=== PATIENT | female | born 1950 | race Two or more races ===

== ENCOUNTER 2025-09-15 18:59 | Inpatient (IN) | payer OTHER ==
[~2025-09-15] VITALS: Ht 152.4 cm; Wt 65.8 kg
--- NOTE | 2025-09-15 20:18 | NUR ---
PACIENTE ALERTA Y ORIENTADA X 3. REFIERE DOLOR ABDOMIAL HACEN 3 ARCOS E INDICA DIVERTICULITIS.
[2025-09-15] MEDS ORDERED: INTESTINEX680 M1 PO (20:25)
[2025-09-15] MEDS ORDERED: METRONIDAZOLE500 MG (20:25)
[2025-09-15] MEDS ORDERED: CIPRO500 MG (20:25)
[2025-09-15] MEDS ORDERED: FARXIGA10 MG PO (20:26)
[2025-09-15] MEDS ORDERED: CARVEDILOL ER40 MG (20:26)
[2025-09-15] MEDS ORDERED: ENTRESTO 24 MG1 EACH PO (20:27)
[2025-09-15] MEDS ORDERED: ALDACTONE25 MG PO (20:27)
[2025-09-15] MEDS ORDERED: MORPHINE SULFATE 4 MG/ML CARTRIDGE IV ONE (22:00)
[2025-09-15] MEDS ORDERED: ONDANSETRON HCL 4 MG in 0.9 % SODIUM CHLORIDE 50 ML IV ONE (22:00)
[2025-09-15] MEDS ORDERED: PIPERACILLIN/TAZOBACTAM SODIUM 3.375 GM in DEXTROSE 5 % IN WATER 100 ML IV ONE (22:00)
[2025-09-15] MEDS ORDERED: FAMOTIDINE/PF 20 MG in 0.9 % SODIUM CHLORIDE 8 ML IV PUSH ONE (22:00)
[2025-09-15] MEDS ORDERED: HYOSCYAMINE SULFATE 0.125 MG TAB.SUBL PO ONE (22:00)
[2025-09-15] MEDS ORDERED: ONDANSETRON 4 MG TAB.RAPDIS PO ONE (23:49)
[2025-09-15] MEDS ORDERED: HYOSCYAMINE SULFATE 0.125 MG TAB.SUBL ONE (23:49)
[2025-09-15] MEDS ORDERED: FAMOTIDINE/PF 20 MG/2 ML VIAL ONE (23:50)
[2025-09-15] MEDS ORDERED: PIPERACILLIN/TAZOBACTAM SODIUM 3.375 GM VIAL IV ONE (23:50)
[2025-09-15] MEDS ORDERED: ONDANSETRON HCL 2 MG/ML VIAL ONE (23:50)
[2025-09-16] MEDS ORDERED: PIPERACILLIN/TAZOBACTAM SODIUM 3.375 GM in DEXTROSE 5 % IN WATER 100 ML IV SCH
[2025-09-16 00:42] LABS: INR 1.05
[2025-09-16 00:43] LABS: BASO % 0.4 % (0.1-1.2); EOS # 0.10 (0.04-0.54); EOS % 1.2 % (0.7-7.0); LYMPH # 1.97 (1.18-3.74); LYMPH % 24.6 % (19.3-53.1); MEAN PLATELET VOLUME 11.00 fl (9.4-12.4); MONO # 0.68 (0.24-0.82); MONO % 8.5 % (4.7-12.5); NEUT # 5.20 (1.56-6.13); NEUT % 64.9 % (34.0-71.1); RED CELL DISTRIBUTION WIDTH 12.9 % (11.6-14.4)
[2025-09-16 00:44] LABS: URINE APPEARANCE Cloudy; URINE BILIRRUBIN Negative (NEGATIVE); URINE BLOOD Negative; URINE COLOR Yellow; URINE LEUKOCYTE Small; URINE NITRATE Negative; URINE PROTEIN Negative (NEGATIVE); URINE UROBILINOGEN 0.2 E.U./dl
[2025-09-16 00:46] LABS: ALT/SGPT 20.0 U/L (12-78); AST/SGOT 17.0 U/L (15-37); BILIRUBIN TOTAL 0.53 mg/dL (0.3-1.2); BUN CREA RATIO 30.0 (7.0-25.0); CREATININE SERUM 0.82 mg/dL (0.55-1.02); GFR 67.6; GLOBULINA 3.7 G/DL (2.4-3.5); GLUCOSE FASTING 87.0 mg/dL (65-100); OSMOLALITY SERUM 281.0 MOSM/KG (275-295)
[2025-09-16 00:48] LABS: URINE EPITHELIAL CELLS 59.9 uL (0.0-38.8); URINE RBC 18.4 uL (0.0-20.8); URINE WBC 160.8 uL (0.0-23.2)
[2025-09-16 00:50] LABS: ERYTHROCYTE SEDIMENTATION RATE 35 mm/hr (0-30)
[2025-09-16 01:06] LABS: URINE CAST 0.42 uL (0.0-1.40); URINE GLUCOSE >=1000 MG/DL (NEGATIVE); URINE KETONE 40 (NEGATIVE); URINE YEAST FEW /hpf
--- NOTE | 2025-09-16 03:51 | NUR ---
PACIENTE EVALUADA POR QUIEN ORDENA TRATAMIENTO MEDICO, SE LE ORIENTA A PACIENTE SOBRE EL MISMO Y REFIERE ENTENDER, SE LE COLECTAN MUESTRAS, SE CANALIZA Y SE ADMINISTRAN MEDICAMENTOS MARIE ORDEN.
[2025-09-16] MEDS ORDERED: PIPERACILLIN/TAZOBACTAM SODIUM 3.375 GM VIAL IV ONE ×2 (05:50→12:11)
[2025-09-16] MEDS ORDERED: CIPROFLOXACIN IN 5 % DEXTROSE 200 ML IV SCH (13:43)
[2025-09-16] MEDS ORDERED: FAMOTIDINE/PF 20 MG in 0.9 % SODIUM CHLORIDE 100 ML IV SCH (13:44)
[2025-09-16] MEDS ORDERED: ONDANSETRON HCL 4 MG in 0.9 % SODIUM CHLORIDE 50 ML IV PRN (13:45)
[2025-09-16] MEDS ORDERED: ACETAMINOPHEN 500 MG GEL..CAP PO SCH (14:00)
[2025-09-16 14:03] VITALS: BP 100/70
[2025-09-16] MEDS ORDERED: METRONIDAZOLE/SODIUM CHLORIDE 500 MG/100 ML PIGGYBACK IV ONE (14:08)
[2025-09-16] MEDS ORDERED: CIPROFLOXACIN IN 5 % DEXTROSE 400 MG/200 ML PIGGYBAG IV ONE (14:08)
[2025-09-16] MEDS ORDERED: FAMOTIDINE/PF 20 MG/2 ML VIAL ONE (14:09)
[2025-09-16 16:32] VITALS: BP 145/72; O2SAT 95
[2025-09-16 17:38] VITALS: BP 117/73; O2SAT 100
[2025-09-17 01:46] VITALS: BP 117/61; O2SAT 96
[2025-09-17 06:18] LABS: BASO % 0.5 % (0.1-1.2); EOS # 0.13 (0.04-0.54); EOS % 2.1 % (0.7-7.0); LYMPH # 1.38 (1.18-3.74); LYMPH % 22.8 % (19.3-53.1); MEAN PLATELET VOLUME 11.10 fl (9.4-12.4); MONO # 0.59 (0.24-0.82); MONO % 9.7 % (4.7-12.5); NEUT # 3.91 (1.56-6.13); NEUT % 64.6 % (34.0-71.1); RED CELL DISTRIBUTION WIDTH 12.9 % (11.6-14.4)
[2025-09-17 06:39] LABS: INR 1.07
[2025-09-17 06:54] LABS: BUN CREA RATIO 23.0 (7.0-25.0); CREATININE SERUM 0.69 mg/dL (0.55-1.02); GFR 82.5; GLUCOSE FASTING 61.0 mg/dL (65-100); OSMOLALITY SERUM 280.0 MOSM/KG (275-295)
[2025-09-17 06:56] LABS: ERYTHROCYTE SEDIMENTATION RATE 20 mm/hr (0-30)
[2025-09-17] MEDS ORDERED: SODIUM CL 0.9% 100 ML IV.SOLN IV ONE (07:31)
[2025-09-17 09:15] VITALS: BP 123/86
[2025-09-17] MEDS ORDERED: BISMUTH SUBSALICYLATE 524 MG/30 ML BLIST.PACK PO PRN (20:45)
[2025-09-17 21:11] VITALS: BP 119/71
[2025-09-18 03:32] VITALS: BP 120/63; O2SAT 98
[2025-09-18 08:15] VITALS: BP 117/55; O2SAT 94
[2025-09-18] MEDS ORDERED: LACTOBACILLUS ACIDOPHILUS 1 CAP CAP PO SCH (09:00)
[2025-09-18 20:30] VITALS: BP 108/59
[2025-09-18] MEDS ORDERED: CARVEDILOL 3.125 MG TABLET PO SCH (20:38)
[2025-09-19] VITALS: BP 123/61; O2SAT 96
[2025-09-19 08:37] VITALS: BP 120/60; O2SAT 96
[2025-09-19] MEDS ORDERED: LACTOBACILLUS ACIDOPHILUS 1 CAP CAP PO SCH (09:00)
== END 2025-09-19 13:14 | disposition home or self-care (01) | DRG 392 ==
LOC: ER 19:00 → MEDI 09-16 13:48
PROVIDERS: General Practice; ADMIT Internal Medicine; ATTEND Internal Medicine
PROC: BW21ZZZ Computerized Tomography (CT Scan) of Abdomen and Pelvis (ICD-10-PCS; principal; 2025-09-16)
PROC: B24BYZZ Ultrasonography of Heart with Aorta using Other Contrast (ICD-10-PCS; 2025-09-18)
DX: K57.92 Diverticulitis of intestine, part unspecified, without perforation or abscess without bleeding (principal); I42.9 Cardiomyopathy, unspecified; I50.9 Heart failure, unspecified